=== PATIENT | female | born 1965 | race Caucasian/White ===

== ENCOUNTER 2018-11-12 10:48 | Day surgery (SDC) | payer OTHER ==
[~2018-11-12 10:48] MED LIST: VANCOMYCIN 1 GM (PMX) 250 ML IVPB
[2018-11-12] MEDS: SOD CHLORIDE 0.9% 1,000 ML IV (11:57)
[2018-11-12] MEDS ORDERED: MEPERIDINE 25 MG INJ IV (15:30)
[2018-11-12] MEDS ORDERED: DIPHENHYDRAMINE 50 MG INJ IV (15:30)
[2018-11-12] MEDS ORDERED: HYDROmorphONE 1 MG/5 ML IV SYRINGE IV ×3 (15:30)
[2018-11-12] MEDS ORDERED: OXYCODONE/ACETAMINOPHEN (5/325) TAB PO ×2 (15:30)
[2018-11-12] MEDS ORDERED: ONDANSETRON 4 MG INJ IV (15:30)
[2018-11-12] MEDS ORDERED: MIDAZOLAM 1 MG/ML 2 ML INJ (15:46)
[2018-11-12] MEDS ORDERED: PROPOFOL 20 ML (15:46)
[2018-11-12] MEDS ORDERED: FENTAnyl 50 MCG/ML VIAL (15:48)
[2018-11-12] MEDS ORDERED: CEFAZOLIN 1 GM INJ (15:51)
[2018-11-12] MEDS: BUPIVACAINE 0.25%/EPI (SDV) 30 ML INJ (16:01)
[2018-11-12] MEDS: LIDOCAINE 1% (MPF) 30 ML INJ (16:01)
[2018-11-12] MEDS ORDERED: KETOROLAC 30 MG INJ (16:03)
== END 2018-11-12 17:46 | disposition home or self-care (01) ==
LOC: SDS 10:48
DX: L72.3 Sebaceous cyst (principal); Z88.0 Allergy status to penicillin
CPT/HCPCS: 14020; 88304